=== PATIENT | female | born 1990 | race African-American/Black ===

== ENCOUNTER 2019-09-29 03:32 | Emergency (ER) | payer OTHER ==
[~2019-09-29] VITALS: Ht 175.3 cm; Wt 74.8 kg
[2019-09-29 03:45] VITALS: BP 140/89
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
== END 2019-09-29 04:30 ==
LOC: ER 03:34
DX: R06.02 Shortness of breath (principal); J45.909 Unspecified asthma, uncomplicated